=== PATIENT | female | born 1990 | race American Indian/Alaskan Native ===

== ENCOUNTER 2017-11-02 22:42 | Emergency (ER) | payer MEDICAID ==
[2017-11-02] MEDS ORDERED: Acetaminophen/HYDROcodone 325-7.5 MG Tab PO ONE (23:05)
[2017-11-02] MEDS ORDERED: Benzocaine 20% Topical Spray UD MUCMEM ONE (23:05)
[2017-11-02] MEDS ORDERED: Lidocaine 2% Viscous Solution 15 ML Cup PO ONE (23:05)
[2017-11-02] MEDS ORDERED: Cephalexin 500 MG Cap PO ONE (23:06)
--- NOTE | 2017-11-02 23:10 | EDM.PDOC ---
ED HPI GENERAL MEDICAL PROBLEM - General Chief Complaint: ENT Problem Stated Complaint: TOOTH PAIN Time Seen by Provider: 11/02/17 22:49 - History of Present Illness INITIAL COMMENTS - FREE TEXT/NARRATIVE: HISTORY AND PHYSICAL: History of present illness: The patient is a healthy 27-year-old female who presents with a known history of a broken tooth at her left lower molar area for which she had received care over the summer with a dentist in [place] and says that she was told that there were some remnants of the tooth left in there. She's been doing well with this and is not sought care with an oral surgeon and she has pain on and off but tonight she went to sleep and woke up with severe pain in the tooth area and radiating to her left ear. She otherwise is healthy with no systemic complaints. She tried [id number] Anbesol and Tylenol Review of systems: As per history of present illness and below otherwise all systems reviewed and negative. Past medical history: As per history of present illness and as reviewed below otherwise noncontributory. Surgical history: As per history of present illness and as reviewed below otherwise noncontributory. Social history: No reported history of drug or alcohol abuse. Family history: As per history of present illness and as reviewed below otherwise noncontributory. Physical exam: Gen.: Well-developed overweight female who is nontoxic and very tearful and anxious in the room. Vital signs of been reviewed by me. HEENT: Atraumatic, normocephalic, pupils reactive, negative for conjunctival pallor or scleral icterus, mucous membranes moist, throat clear, neck supple, nontender, trachea midline. TMs on the left is normal, there is no cervical adenopathy or nuchal rigidity. At the left lower molar areas there is some minimal gum swelling without fluctuance and there is a visibly fractured tooth with tenderness at the tooth. There is no dental caries seen Lungs: Clear to auscultation, breath sounds equal bilaterally, chest nontender. Heart: S1S2, regular rate and rhythm on my evaluation Abdomen: Deferred. Pelvis: Deferred Genitourinary: Deferred. Rectal: Deferred. Extremities: Atraumatic, full range of motion without defects or deficits Neurovascular unremarkable. Neuro: Awake, alert, oriented. Cranial nerves II through XII unremarkable. Cerebellum unremarkable. Motor and sensory unremarkable throughout. Exam nonfocal. Diagnostics: [] Therapeutics: Dental balls Keflex [place] Patient will prefer prescriptions over Insty Meds due to financial reasons Impression: Dental pain with history of fractured tooth Definitive disposition and diagnosis as appropriate pending reevaluation and review of above. 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: Musculoskeletal History: Reports: Fibromyalgia, RA Neurological History: Reports: None Psychiatric History: Reports: None Endocrine/Metabolic History: Reports: None Hematologic History: Reports: None Immunologic History: Reports: None Oncologic (Cancer) History: Reports: None Dermatologic History: Reports: Psoriasis - Infectious Disease History Infectious Disease History: Reports: None - Past Surgical History Head Surgeries/Procedures: Reports: None Female Surgical History: Reports: Section Social & Family History - Family History Family Medical History: Noncontributory - Tobacco Use Smoking Status *Q: Current Every Day Smoker Years of Tobacco use: 7 Packs/Tins Daily: 0.5 - Caffeine Use Caffeine Use: Reports: Coffee - Recreational Drug Use Recreational Drug Use: No ED ROS GENERAL - Review of Systems Review Of Systems: ROS reveals no pertinent complaints other than HPI. ED EXAM, GENERAL - Physical Exam Exam: See Below (See dictation) Course - Vital Signs Last Recorded V/S: Last Vital Signs Temp 37.1 C 11/02/17 22:50 Pulse 104 H 11/02/17 22:50 Resp 18 11/02/17 22:50 BP 149/105 H 11/02/17 22:50 Pulse Ox 98 11/02/17 22:50 - Orders/Labs/Meds Orders: Active Orders 24 hr Category Date Time Status Acetaminophen/HYDROcodone [[place] 325-7.5 MG] Med 11/02/17 23:05 Once 1 tab PO ONETIME ONE Benzocaine [Hurricaine One 20%] Med 11/02/17 23:05 Once 2 each MUCMEM ONETIME ONE Cephalexin [Keflex] Med 11/02/17 23:06 Once 500 mg PO ONETIME ONE Lidocaine 2% [Xylocaine 2% Viscous] Med 11/02/17 23:05 Once 15 ml PO ONETIME ONE Departure - Departure Time of Disposition: 23:09 Disposition: Home, Self-Care 01 Condition: Good Clinical Impression: Tooth pain - Discharge Information Referrals: PCP,None [Primary Care Provider] - Additional Instructions: The following information is given to patients seen in the emergency department who are being discharged to home. This information is to outline your options for follow-up care. We provide all patients seen in our emergency department with a follow-up referral. The need for follow-up, as well as the timing and circumstances, are variable depending upon the specifics of your emergency department visit. If you don't have a primary care physician on staff, we will provide you with a referral. We always advise you to contact your personal physician following an emergency department visit to inform them of the circumstance of the visit and for follow-up with them and/or the need for any referrals to a consulting specialist. The emergency department will also refer you to a specialist when appropriate. This referral assures that you have the opportunity for followup care with a specialist. All of these measure are taken in an effort to provide you with optimal care, which includes your followup. Under all circumstances we always encourage you to contact your private physician who remains a resource for coordinating your care. When calling for followup care, please make the office aware that this follow-up is from your recent emergency room visit. If for any reason you are refused follow-up, please contact the [facility] emergency department at and ask to speak to the emergency department charge nurse. [facility] Primary care- Internal Medicine and Family [place] [phone] Please try to connect with a local dentist or an oral surgeon to get definitive care and treatment of this problem. Please take prescriptions as given to you and use dental balls given to in the ER as needed. If there is swelling of the face please apply ice. Return to ER as needed and as discussed - My Orders Last 24 Hours: My Active Orders 11/02/17 23:05 Acetaminophen/HYDROcodone [[place] 325-7.5 MG] 1 tab PO ONETIME ONE Benzocaine [Hurricaine One 20%] 2 each MUCMEM ONETIME ONE Lidocaine 2% [Xylocaine 2% Viscous] 15 ml PO ONETIME ONE 11/02/17 23:06 Cephalexin [Keflex] 500 mg PO ONETIME ONE - Assessment/Plan Last 24 Hours: My Active Orders 11/02/17 23:05 Acetaminophen/HYDROcodone [[place] 325-7.5 MG] 1 tab PO ONETIME ONE Benzocaine [Hurricaine One 20%] 2 each MUCMEM ONETIME ONE Lidocaine 2% [Xylocaine 2% Viscous] 15 ml PO ONETIME ONE 11/02/17 23:06 Cephalexin [Keflex] 500 mg PO ONETIME ONE
== END 2017-11-02 23:50 | disposition home or self-care (01) ==
LOC: MW.ED 22:42
DX: K08.89 Other specified disorders of teeth and supporting structures (principal); F17.210 Nicotine dependence, cigarettes, uncomplicated; Z88.1 Allergy status to other antibiotic agents
CPT/HCPCS: 99283; A9270

== ENCOUNTER 2021-02-28 20:47 | Emergency (ER) | payer MEDICAID, OTHER ==
[2021-02-28] MEDS ORDERED: oxyCODONE 5 MG Tab PO ONE (21:26)
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
== END 2021-03-01 02:00 | disposition home or self-care (01) ==
LOC: MW.ED 20:47
DX: S19.9XXA Unspecified injury of neck, initial encounter (principal); S39.92XA Unspecified injury of lower back, initial encounter; R51.9 Headache, unspecified; Z72.0 Tobacco use; Z79.899 Other long term (current) drug therapy; Z88.0 Allergy status to penicillin; Z88.6 Allergy status to analgesic agent; V49.40XA Driver injured in collision with unspecified motor vehicles in traffic accident, initial encounter; Y92.410 Unspecified street and highway as the place of occurrence of the external cause
CPT/HCPCS: 70450; 72125; 72131; 73590; 81001; 81025; 87086; 87088; 87186; 99284; A9270

== ENCOUNTER 2021-11-07 18:51 | Emergency (ER) | payer OTHER ==
[2021-11-07] MEDS ORDERED: Acetaminophen/oxyCODONE 325-5 MG Tab PO ONE (19:44)
--- NOTE | 2021-11-07 20:29 | EDM.PDOC ---
ED HPI GENERAL MEDICAL PROBLEM - General Chief Complaint: Upper Extremity Injury/Pain Stated Complaint: RECENT ARM SURGERY, SWELLING AND REDNESS Time Seen by Provider: 11/07/21 19:20 - History of Present Illness INITIAL COMMENTS - FREE TEXT/NARRATIVE: CHIEF COMPLAINT(S): Pain and swelling HISTORY OF PRESENT ILLNESS: This is a 31-year-old woman with a past medical history of rheumatoid arthritis on methotrexate and prednisone with recent hidradenitis surgery approximately 3 days ago who comes to the emergency department with a chief complaint of pain and swelling. Patient states that she had surgery approximately 3 days ago. She states that things were going completely fine however yesterday she started to experience increased swelling and pain. She states that she then developed some redness. She describes the pain as achy and rated 8-9 out of 10. There is no radiation of this pain. The pain is worse with movement. She denies any numbness, tingling or weakness. The pain does not improve with Midol or Macy. She denies any fevers, chills, purulent drainage. REVIEW OF SYSTEMS: Constitutional: Denies fever, chills. Gastrointestinal: Denies Nausea, Skin: Positive for bilateral arm swelling, redness MSK: Positive for bilateral arm pain neurological denies numbness or tingling PAST MEDICAL HISTORY: As per history of present illness and as reviewed below otherwise noncontributory. SURGICAL HISTORY: As per history of present illness and as reviewed below otherwise noncontributory. SOCIAL HISTORY: As per history of present illness and as reviewed below otherwise noncontributory. FAMILY HISTORY: As per history of present illness and as reviewed below otherwise noncontributory. EXAMINATION OF ORGAN SYSTEMS/BODY AREAS: Constitutional: Blood pressure is 145/112, heart rate 102, respiratory rate 18 with an oxygen saturation of 97% on room air. Temperature 37.2 General: Young woman who is tearful but in no acute distress Psychiatric: Appropriate mood and affect. Eyes: No scleral icterus or conjunctival erythema Cardiovascular: Regular, rate, and rhythm. No gallops, murmurs, or rubs. Bilateral upper extremity pulses symmetric and intact. No peripheral edema. Musculoskeletal: Normal range of motion. Compartments are soft. Distal capillary refill less than 2 seconds Skin: There are 2 surgical incisions with stitches located in the patient's bilateral armpits measuring greater than 9 cm which appear clean, dry without any purulent drainage. Dressing is clean dry and intact. Along the left posterior elbow there is what appears to be bruising. There is no erythema or warmth. Neurological: Alert, GCS 15 distal sensation and stapler machine strength intact MEDICAL DECISION MAKING AND COURSE IN THE ED WITH INTERPRETATION/REVIEW OF DIAGNOSTIC STUDIES: This is a 31-year-old woman with a past medical history of rheumatoid arthritis on methotrexate and prednisone with recent hidradenitis surgery who comes to the emergency department with increased pain he was taking 1 tablet of Midol and 1 tablet of Macy per day. There does appear to be postsurgical changes including some bruising but no evidence of any infection. The patient's vital signs are within normal limits. I do believe the patient is under treating her pain however we will contact the patient's surgeon for further recommendations. The patient was amenable to this plan. I do not believe any further labs or imaging are indicated. I did contact the patient's surgeon. She recommended slight elevation of bilateral arms to help with swelling and drainage, continued use of Macy alternating with Tylenol, short treatment with ibuprofen and if needed follow-up sooner in our clinic. I did discuss this with the patient. They were amenable to discharge and had no further questions. DISPOSITION: The patient was discharged home in stable condition. The patient will follow up with her surgeon at her scheduled appointment CONDITION: Fair PROCEDURES: None FINAL IMPRESSION(S)/DIAGNOSES: 1. Acute postoperative pain, likely undertreated Robert Adame M.D. bilateral armpit Pain Score (Numeric/FACES): 8 - Related Data Allergies Allergy/AdvReac Type Severity Reaction Status Date / Time diclofenac Allergy Severe Airway Verified 11/07/21 19:21 Tightness amoxicillin Allergy Other Verified 11/07/21 19:21 Home Meds: Home Meds Acetaminophen [Tylenol] 500 mg PO Q4H PRN 11/07/21 [History] Folic Acid 1 mg PO DAILY 11/07/21 [History] Hydrocodone/Acetaminophen [HYDROcodone-Acetaminophen 5-325 MG] 1 each PO Q6H PRN #14 tab 11/07/21 [Rx] Hydrocodone/Acetaminophen [HYDROcodone-Acetaminophen 5-325 MG] 1 each PO Q6HR PRN 11/07/21 [History] Methotrexate 2.5 mg PO ASDIRECTED 11/07/21 [History] Orphenadrine [Norflex] 100 mg PO BEDTIME PRN 11/07/21 [History] buPROPion HCL [Wellbutrin SR] 150 mg PO Q12HR 11/07/21 [History] Past Medical History HEENT History: Reports: None Cardiovascular History: Reports: None Respiratory History: Reports: None Gastrointestinal History: Reports: None Genitourinary History: Reports: None [employer] History: Reports: Musculoskeletal History: Reports: Fibromyalgia, RA Neurological History: Reports: None Psychiatric History: Reports: None Endocrine/Metabolic History: Reports: None Hematologic History: Reports: None Immunologic History: Reports: None Oncologic (Cancer) History: Reports: None Dermatologic History: Reports: Psoriasis, Other (See Below) Other Dermatologic History: Hidradenitis - Infectious Disease History Infectious Disease History: Reports: None - Past Surgical History Head Surgeries/Procedures: Reports: None Female Surgical History: Reports: Section Social & Family History - Family History Family Medical History: No Pertinent Family History - Caffeine Use Caffeine Use: Reports: None - Recreational Drug Use Recreational Drug Use: No Review of Systems - Review of Systems Review Of Systems: See Below ED EXAM, GENERAL - Physical Exam Exam: See Below Course - Vital Signs Last Recorded V/S: Last Vital Signs Temp 37.2 C 11/07/21 19:15 Pulse 81 11/07/21 20:43 Resp 16 11/07/21 20:43 BP 135/90 11/07/21 20:43 Pulse Ox 95 11/07/21 20:43 - Orders/Labs/Meds Meds: Medications Discontinued Medications Generic Name Dose Route Start Last Admin Trade Name Freq PRN Reason Stop Dose Admin Oxycodone/Acetaminophen 1 tab 11/07/21 19:44 11/07/21 19:51 Acetaminophen/Oxycodone 325-5 Mg Tab PO 11/07/21 19:45 1 tab ONETIME ONE Administration Departure - Departure Time of Disposition: 20:27 Disposition: Home, Self-Care 01 Condition: Fair Clinical Impression: Post-operative pain - Discharge Information *PRESCRIPTION DRUG MONITORING PROGRAM REVIEWED*: No *COPY OF PRESCRIPTION DRUG MONITORING REPORT IN PATIENT GILBERTO: No Prescriptions: Hydrocodone/Acetaminophen [HYDROcodone-Acetaminophen 5-325 MG] 1 each PO Q6H PRN #14 tab PRN Reason: Pain (Severe 7-10) Instructions: Pain Relief Before and After Surgery Referrals: Emelina Hill DO [Primary Care Provider] - Forms: ED Department Discharge Additional Instructions: You were evaluated today on an emergent basis. At this time in discussion with your surgeon we recommend the following. Please use: Tylenol 500mg every 6 hours (DO NOT TAKE MORE THAN 4000mg in 1 day) Example schedule: 8:00 AM (Tylenol 500mg) 11:00 AM (Macy 5mg) 2:00 PM (Tylenol 500mg) 5:00 PM (Macy 5mg) I recommend that you schedule your pain medication over the next 2 days and then only use the Macy as needed for severe pain. In addition we discussed that you should elevate both your arms so that the swelling can decrease. If you develop any pus drainage, increased redness, increased pain or you are concerned you are welcome to return to the emergency department. Please keep your follow-up appointment with your surgeon. If you would like a sooner appointment please contact at the number below. [phone] The patient is informed of any results of their evaluation and diagnostic workup and all questions are answered. They are given discharge instructions and return precautions. The patient is stable for discharge. The patient states they understand and agree with the plan and that they will return if their symptoms get worse or if they have any new concerns. The following information is given to patients seen in the emergency department who are being discharged to home. This information is to outline your options for follow-up care. We provide all patients seen in our emergency department with a follow-up referral. The need for follow-up, as well as the timing and circumstances, are variable depending upon the specifics of your emergency department visit. If you don't have a primary care physician on staff, we will provide you with a referral. We always advise you to contact your personal physician following an emergency department visit to inform them of the circumstance of the visit and for follow-up with them and/or the need for any referrals to a consulting specialist. The emergency department will also refer you to a specialist when appropriate. This referral assures that you have the opportunity for follow-up care with a specialist. All of these measure are taken in an effort to provide you with optimal care, which includes your follow-up. Under all circumstances we always encourage you to contact your private physician who remains a resource for coordinating your care. When calling for follow-up care, please make the office aware that this follow-up is from your recent emergency room visit. If for any reason you are refused follow-up, please contact the [facility] Department at and asked to speak to the emergency department charge nurse. Sepsis Event Note (ED) - Evaluation Sepsis Screening Result: No Definite Risk - Focused Exam Vital Signs: Vital Signs Temp Pulse Resp BP Pulse Ox 11/07/21 20:43 81 16 135/90 95 11/07/21 19:15 37.2 C 102 H 18 145/112 H 97
== END 2021-11-07 20:42 | disposition home or self-care (01) ==
LOC: MW.ED 18:51
DX: G89.18 Other acute postprocedural pain (principal); M06.9 Rheumatoid arthritis, unspecified; Z88.6 Allergy status to analgesic agent; Z88.0 Allergy status to penicillin; Z79.899 Other long term (current) drug therapy
CPT/HCPCS: 99283; A9270

== ENCOUNTER 2021-12-02 12:33 | Emergency (ER) | payer OTHER ==
[2021-12-02] MEDS ORDERED: predniSONE 5 MG Tab PO STA (14:41)
== END 2021-12-02 15:27 | disposition home or self-care (01) ==
LOC: MW.ED 12:33
DX: F55.3 Abuse of steroids or hormones (principal); Z76.0 Encounter for issue of repeat prescription; Z88.0 Allergy status to penicillin; Z88.8 Allergy status to other drugs, medicaments and biological substances
CPT/HCPCS: 99281; J7512

== ENCOUNTER 2022-11-27 17:48 | Emergency (ER) | payer BC, OTHER ==
[2022-11-27] MEDS ORDERED: Ondansetron 4 MG/2 ML SDV IVPUSH ONE (18:20)
[2022-11-27] MEDS ORDERED: Sodium Chloride 0.9% 1,000 ML IV ONE (18:20)
[2022-11-27 20:06] LABS: CARBON DIOXIDE,CO2 29.5 mmol/L (21.0-32.0); POTASSIUM,K 3.8 mmol/L (3.5-5.1)
[2022-11-27] MEDS ORDERED: Acetaminophen/HYDROcodone 325-5 MG Tab PO ONE (21:15)
[2022-11-27 22:38] LABS: C. TRACHOMATIS BY PCR NOT DETECTED; N. GONORRHOEAE BY PCR NOT DETECTED
== END 2022-11-27 21:19 | disposition home or self-care (01) ==
LOC: MW.ED 17:48
DX: R10.9 Unspecified abdominal pain (principal); F17.210 Nicotine dependence, cigarettes, uncomplicated; Z88.0 Allergy status to penicillin; Z88.6 Allergy status to analgesic agent; Z91.048 Other nonmedicinal substance allergy status; Z79.899 Other long term (current) drug therapy
CPT/HCPCS: 36415; 80053; 81001; 81025; 85025; 87086; 87480; 87491; 87510; 87591; 87660; 96361; 96374; 99284; A9270; J2405; J7030

== ENCOUNTER 2023-08-06 17:37 | Emergency (ER) | payer OTHER ==
[2023-08-06] MEDS ORDERED: Sodium Chloride 0.9% 2.5 ML Syringe FLUSH PRN (18:09)
[2023-08-06] MEDS ORDERED: Sodium Chloride 0.9% 10 ML Syringe FLUSH PRN (18:09)
[2023-08-06] MEDS ORDERED: Prochlorperazine 10 MG/2 ML SDV IVPUSH STA (18:10)
[2023-08-06] MEDS ORDERED: Magnesium Sulfate/Water 2 GM in Premix Bag 1 BAG IV STA (18:10)
[2023-08-06] MEDS ORDERED: Sodium Chloride 0.9% 1,000 ML IV STA (18:10)
[2023-08-06] MEDS ORDERED: Acetaminophen 500 MG Tab PO STA (18:11)
[2023-08-06] MEDS ORDERED: diphenhydrAMINE 50 MG/ML SDV IVPUSH STA (18:11)
[2023-08-06 18:38] LABS: BASOPHILS PERCENT AUTO 0.2 % (0.0-1.5); HEMATOCRIT 41.3 % (36.0-46.0); HEMOGLOBIN 13.9 g/dL (12.0-16.0); LYMPHOCYTES ABSOLUTE AUTO 2.3 K/uL (0.6-2.4); MEAN CORPUSCULAR HEMOGLOBIN 32.2 pg (27.0-32.0); MEAN CORPUSCULAR HGB CONC 33.7 g/dL (31.0-37.0); MEAN CORPUSCULAR VOLUME 95.6 fL (80.0-98.0); MONOCYTES ABSOLUTE AUTO 0.7 K/uL (0.0-0.8); MONOCYTES PERCENT AUTO 8.1 % (0.0-15.0); NEUTROPHILS PERCENT AUTO 62.7 % (48.0-80.0); NRBC ABSOLUTE 0 K/uL; PLATELET COUNT,PLT 180 K/uL (150-400); RED BLOOD CELL COUNT 4.32 M/uL (4.30-5.90); WHITE BLOOD CELL COUNT,WBC 8.04 K/uL (4.0-11.0)
[2023-08-06 19:00] LABS: A/G RATIO 1.1 (0.9-1.6); BILIRUBIN TOTAL 0.5 mg/dL (0.2-1.0); CALCIUM 8.8 mg/dL (8.5-10.1); CARBON DIOXIDE,CO2 25.3 mmol/L (21.0-32.0); CREATININE 0.7 mg/dL (0.6-1.0); EST CRCL DRUG DOSING (CG) 104.78 mL/min; POTASSIUM,K 3.7 mmol/L (3.5-5.1); PROTEIN TOTAL,TP 7.6 g/dL (6.4-8.2)
== END 2023-08-06 19:50 | disposition home or self-care (01) ==
LOC: MW.ED 17:37
DX: R51.9 Headache, unspecified (principal); M06.9 Rheumatoid arthritis, unspecified; Z20.822 Contact with and (suspected) exposure to COVID-19; Z79.899 Other long term (current) drug therapy; Z88.1 Allergy status to other antibiotic agents; Z88.6 Allergy status to analgesic agent; Z91.09 Other allergy status, other than to drugs and biological substances
CPT/HCPCS: 36415; 80053; 85025; 87635; 96365; 96375; 99283; A9270; J0780; J1200; J3475; J3490; J7030; 99284; U0002

== ENCOUNTER 2024-04-08 18:44 | Emergency (ER) | payer SELFPAY ==
[2024-04-08] MEDS: Ketorolac 30 MG/ML SDV IVPUSH ONE (19:46)
[2024-04-08] MEDS: Metoclopramide 10 MG/2 ML SDV IVPUSH ONE (19:46)
[2024-04-08] MEDS: Ondansetron 4 MG/2 ML SDV IVPUSH ONE (19:46)
[2024-04-08] MEDS: Sodium Chloride 0.9% 1,000 ML IV SCH (19:46)
[2024-04-08] MEDS: diphenhydrAMINE 50 MG/ML SDV IVPUSH ONE (19:46)
[2024-04-08 20:08] LABS: BASOPHILS ABSOLUTE AUTO 0.03 K/uL (0.00-0.20); BASOPHILS PERCENT AUTO 0.3 % (0.0-1.0); EOSINOPHILS ABSOLUTE AUTO 0.08 K/uL (0.00-0.45); EOSINOPHILS PERCENT AUTO 0.9 % (0.0-6.0); HEMATOCRIT 39.5 % (37.0-47.0); HEMOGLOBIN 13.5 g/dL (12.0-16.0); IMMATURE GRAN ABSOLUTE AUTO 0.02 K/uL (0.00-0.05); IMMATURE GRAN PERCENT AUTO 0.2 % (0.0-0.4); LYMPHOCYTES ABSOLUTE AUTO 2.95 K/uL (1.00-4.80); LYMPHOCYTES PERCENT AUTO 33.8 % (24.0-44.0); MEAN CORPUSCULAR HEMOGLOBIN 32.6 pg (28.0-32.0); MEAN CORPUSCULAR HGB CONC 34.2 g/dL (32.0-36.0); MEAN CORPUSCULAR VOLUME 95.4 fL (83.0-99.0); MONOCYTES ABSOLUTE AUTO 0.54 K/uL (0.00-0.80); MONOCYTES PERCENT AUTO 6.2 % (0.0-8.0); NEUTROPHILS ABSOLUTE AUTO 5.11 K/uL (1.80-7.70); NEUTROPHILS PERCENT AUTO 58.6 % (41.0-71.0); PLATELET COUNT,PLT 168 K/uL (150-400); RED BLOOD CELL COUNT 4.14 M/uL (4.10-5.30); WHITE BLOOD CELL COUNT,WBC 8.73 K/uL (3.9-11.3)
[2024-04-08 20:32] LABS: A/G RATIO 0.9 (0.9-1.6); ALBUMIN 3.4 g/dL (3.4-5.0); BILIRUBIN TOTAL 0.4 mg/dL (0.2-1.0); CALCIUM 8.5 mg/dL (8.5-10.1); CARBON DIOXIDE,CO2 25.5 mmol/L (21.0-32.0); CREATININE 0.8 mg/dL (0.6-1.0); EST CRCL DRUG DOSING (CG) 90.84 mL/min; POTASSIUM,K 4.1 mmol/L (3.5-5.1)
== END 2024-04-08 21:00 | disposition home or self-care (01) ==
LOC: MW.ED 18:44
DX: G43.909 Migraine, unspecified, not intractable, without status migrainosus (principal); Z79.899 Other long term (current) drug therapy; Z88.1 Allergy status to other antibiotic agents; Z91.048 Other nonmedicinal substance allergy status; Z75.8 Other problems related to medical facilities and other health care
CPT/HCPCS: 36415; 80053; 85025; 96374; 96375; 99283; J1200; J1885; J2405; J2765; J7030; 99284

== ENCOUNTER 2025-01-15 18:50 | Emergency (ER) | payer BC ==
[2025-01-15] MEDS ORDERED: Sodium Chloride 0.9% 2.5 ML Syringe FLUSH PRN (21:06)
[2025-01-15] MEDS ORDERED: Sodium Chloride 0.9% 10 ML Syringe FLUSH PRN (21:06)
[2025-01-15] MEDS: Sodium Chloride 0.9% 1,000 ML IV ONE (21:16)
[2025-01-15] MEDS: Acetaminophen 500 MG Tab PO ONE (21:16)
[2025-01-15] MEDS: Metoclopramide 10 MG/2 ML SDV IVPUSH ONE (21:17)
[2025-01-15] MEDS: diphenhydrAMINE 50 MG/ML SDV IVPUSH ONE (21:17)
[2025-01-15 21:19] LABS: BASOPHILS ABSOLUTE AUTO 0.07 K/uL (0.00-0.20); BASOPHILS PERCENT AUTO 0.7 % (0.0-1.0); EOSINOPHILS ABSOLUTE AUTO 0.06 K/uL (0.00-0.45); EOSINOPHILS PERCENT AUTO 0.6 % (0.0-6.0); HEMATOCRIT 40.7 % (37.0-47.0); HEMOGLOBIN 14.2 g/dL (12.0-16.0); IMMATURE GRAN ABSOLUTE AUTO 0.02 K/uL (0.00-0.05); IMMATURE GRAN PERCENT AUTO 0.2 % (0.0-0.4); LYMPHOCYTES ABSOLUTE AUTO 4.06 K/uL (1.00-4.80); LYMPHOCYTES PERCENT AUTO 42.5 % (24.0-44.0); MEAN CORPUSCULAR HEMOGLOBIN 33.2 pg (28.0-32.0); MEAN CORPUSCULAR HGB CONC 34.9 g/dL (32.0-36.0); MEAN CORPUSCULAR VOLUME 95.1 fL (83.0-99.0); MEAN PLATELET VOLUME 10.7 fL (9.4-12.3); MONOCYTES PERCENT AUTO 4.2 % (0.0-8.0); NEUTROPHILS ABSOLUTE AUTO 4.95 K/uL (1.80-7.70); NEUTROPHILS PERCENT AUTO 51.8 % (41.0-71.0); PLATELET COUNT,PLT 209 K/uL (150-400); RED BLOOD CELL COUNT 4.28 M/uL (4.10-5.30); WHITE BLOOD CELL COUNT,WBC 9.56 K/uL (3.9-11.3)
[2025-01-15 21:49] LABS: ALBUMIN 3.7 g/dL (3.4-5.0); BILIRUBIN TOTAL 0.6 mg/dL (0.2-1.0); CALCIUM 8.6 mg/dL (8.5-10.1); CARBON DIOXIDE,CO2 26.7 mmol/L (21.0-32.0); CREATININE 0.8 mg/dL (0.6-1.0); EST CRCL DRUG DOSING (CG) 87.18 mL/min; POTASSIUM,K 3.9 mmol/L (3.5-5.1); PROTEIN TOTAL,TP 7.3 g/dL (6.4-8.2)
== END 2025-01-15 22:51 | disposition home or self-care (01) ==
LOC: MW.ED 18:50
DX: R51.9 Headache, unspecified (principal); Z88.1 Allergy status to other antibiotic agents; Z91.048 Other nonmedicinal substance allergy status; Z79.899 Other long term (current) drug therapy; Z75.8 Other problems related to medical facilities and other health care
CPT/HCPCS: 36415; 80053; 85025; 96361; 96374; 96375; 99284; A9270; J1100; J1200; J2765; J7030; 99283